=== PATIENT | female | born 1945 | race Caucasian/White ===

== ENCOUNTER 2016-05-29 08:59 | Emergency (ER) | payer MEDICARE ==
[~2016-05-29] VITALS: Wt 65.0 kg
--- NOTE | 2016-05-29 10:38 | ERD ---
ER Documentation Chief Complaint Date/Time DATE: 05/29/16 TIME: 10:37 Chief Complaint cough for the past 5 mos. upperback pain. neck pain and swelling no stridor HPI This is a 71-year-old female presents to the ER with a cough for the last 5 months. Patient states she has been trying to take Robitussin however has not worked. Cough is dry and worse at night. Patient also complaining of upper back pain secondary to coughing. She denies any chest pain or shortness of breath. Did not has not traveled anywhere. She denies any fevers or chills. There are no sick contacts at home. ROS 12 point review of systems was done, all negative except per HPI. Medications Home Meds Active Scripts Methylprednisolone* (Medrol* DOSE PACK) 4 Mg/Dose-Pack Tab.ds.pk, 4 MG PO . DIRECTED for 6 Days, PACKET Prov:SAHARA BLACKMON 05/29/16 Allergies Allergies: Uncoded Allergies: PENICILLIN (Allergy, Intermediate, 05/29/16) PMhx/Soc Hx Cardiac Disorders: Yes (HTN) Hx Alcohol Use: No Hx Substance Use: No Hx Tobacco Use: No Physical Exam Vitals Vital Signs Date Time Temp Pulse Resp B/P Pulse Ox O2 Delivery O2 Flow Rate FiO2 05/29/16 09:03 97.9 59 20 142/78 99 Physical Exam GENERAL: The patient is well-developed, well-nourished, in no acute distress. NECK: 2cm*3cm hard mass on right side of neck, next to thyroid HEENT: Atraumatic. Pupils equal, round and reactive to light. Extraocular muscles are grossly intact. Conjunctivae pink, no discharge. Bilateral tympanic membranes are clear with no evidence of erythema, effusion or dulling of the light reflex. Tonsilar erythema with no exudates or uvular deviation. Clear rhinorrhea. RESPIRATORY: Clear to auscultation bilaterally. There are no rales, wheezes or rhonchi. HEART: Regular rate and rhythm. No murmurs, clicks, rubs or gallops. NEUROLOGIC: Alert and oriented. SKIN: There is no rash. The skin is warm and dry. Procedures/MDM Differential diagnosis includes but is not limited to; Viral URI, allergic rhinitis, bronchitis, pertussis,pneumonia. Patient has had a cough for the last 5 months. Patient likely has bronchitis which is viral in etiology. She is afebrile and well-appearing. Will be sent home with a steroid pack. Clinical suspicion for pneumonia is low as patient appears well, is not hypoxic or in any respiratory distress. Additionally, patients physical examination is benign. Patient does have a cyst in her neck which could be related to the thyroid however radiologist is not sure. Patient urgently needs to follow-up with her primary care doctor regarding this mass. Thoroughly explained to the patient she understood the plan. Plan was discussed with patient they understand and agree. Patient needs to follow up with PCP in 1-2 days or return to ER sooner if symptoms worsen. Departure Diagnosis: Primary Impression: Bronchitis Condition: Stable SAHARA BLACKMON May 29, 2016 10:38
--- NOTE | 2016-05-29 10:56 | RADRPT ---
PROCEDURE: Ultrasound neck CLINICAL INDICATION: Right neck mass TECHNIQUE: Sonographic evaluation of the right lateral neck was performed. Pyle scale and color i maging was performed in the sagittal and coronal planes. Images were reviewed on a high-resolution PACS workstation. COMPARISON: None available FINDINGS: The bilateral thyroid gland is enlarged and heterogeneous with multiple nodules most consistent with multinodular goiter. There is a 2.4 x 2.8 cm mass in the right neck mass which may be separate fro m the thyroid gland, though is contiguous with the thyroid gland. It is unclear from the provided i mages of this represents a thyroid nodule, and adjacent mass/enlarged lymph node. Per ultrasonograph er, this lesion is distinct and separate from the thyroid gland. This lesion appears to represent a complex cystic lesion given through transmission. The lesion is hypervascular confirming some jermaine d component. IMPRESSION: 1. 2.8 cm solid hypervascular mass with cystic components in the right neck. This mass is difficul t to separate from the thyroid gland, however is not definitively within the gland. Recommend furth er evaluation with contrast enhanced CT of the neck. RPTAT: KK .Sg Honeycutt MD, Date Time Electronically viewed and signed by .Sg Honeycutt MD, MD on 05/29/2016 10:55 .B/
--- NOTE | 2016-05-29 11:08 | RADRPT ---
PROCEDURE: Chest Radiograph. CLINICAL INDICATION: Cough TECHNIQUE: Single frontal chest radiograph. COMPARISON: None available FINDINGS: Heart size is poorly evaluated. Atherosclerotic calcifications are present. Lung volumes are decre ased in there is basilar atelectasis and central compressive change. No infiltrate or effusion is se en. The bones are intact. IMPRESSION: 1. Low lung volumes with basilar atelectasis and central compressive changes. 2. Atherosclerotic vascular disease. 3. No evidence of acute cardiopulmonary disease. RPTAT: KK .Sg Honeycutt MD, MD Date Time Electronically viewed and signed by .Sg Honeycutt MD, MD on 05/29/2016 11:08 .B/
[2016-05-29] MEDS ORDERED: MED4DP PO (11:31)
== END 2016-05-29 11:44 | disposition home or self-care (01) ==
LOC: FTE 08:59
DX: J40 Bronchitis, not specified as acute or chronic (principal); I10 Essential (primary) hypertension
CPT/HCPCS: 71010; 76536; 93005

== ENCOUNTER 2016-08-08 16:43 | Emergency (ER) | payer OTHER ==
[~2016-08-08] VITALS: Ht 157.5 cm; Wt 85.0 kg
[~2016-08-08 16:43] MED LIST: MED4DP PO
[2016-08-08 16:45] VITALS: Ht 157.5 cm; Wt 85.0 kg
--- NOTE | 2016-08-08 17:33 | RADRPT ---
PROCEDURE: CHEST 1VW CLINICAL INDICATION: Cough TECHNIQUE: Single frontal view of the chest was obtained COMPARISON: None. FINDINGS: The cardiac size is normal. Aortic vascular calcifications are demonstrated. There is no pulmonary vascular congestion. Minimal bronchial wall thickening is seen. The lungs are otherwise clear. No consolidation, effusion, or pneumothorax. Mild degenerative changes of the visualized osseous structures are visualized. IMPRESSION: 1. Minimal bronchial wall thickening may be sequela of bronchitis, asthma, or other nonspecific air way inflammation. 2. Atherosclerosis. RPTAT:PP .Melchor Lake MD, MD Date Time Electronically viewed and signed by .Melchor Lake MD, MD on 08/08/2016 17:33 .V/
[2016-08-08] MEDS ORDERED: AZIT250T94 PO (17:39)
[2016-08-08] MEDS ORDERED: PRED20TA PO (17:40)
--- NOTE | 2016-08-08 18:16 | ERD ---
ER Documentation Chief Complaint Date/Time DATE: 08/08/16 TIME: 18:15 Chief Complaint DRY COUGH X 2 WEEKS HPI This is a 71-year-old female presents to the ER with the dry cough over the last 2 weeks. Patient states that cough is worsening. She denies any chest pain or shortness of breath. She denies any fevers or chills. She does admit to a stuffy nose. She denies any sore throat. There are no sick contacts at home. Patient has not tried anything for her cough. ROS 12 point review of systems was done, all negative except per HPI. Medications Home Meds Active Scripts Prednisone* (Prednisone*) 20 Mg Tab, 40 MG PO DAILY for 4 Days, TAB Prov:SAHARA BLACKMON 08/08/16 Azithromycin* (Zithromax*) 250 Mg Tablet, 250 MG PO .ZPACK DIRECTED, #6 TAB TAKE 500 MG (2 TABS) THE FIRST DAY THEN 250 MG (1 TAB) DAYS 2-5 Prov:SAHAAR BLACKMON 08/08/16 PMhx/Soc Medical and Surgical Hx: pt denies Medical Hx, pt denies Surgical Hx Physical Exam Vitals Vital Signs Date Time Temp Pulse Resp B/P Pulse Ox O2 Delivery O2 Flow Rate FiO2 08/08/16 16:45 98.6 78 20 145/78 99 Physical Exam GENERAL: The patient is well-developed, well-nourished, in no acute distress. NECK: Cervical spine is non tender with no step off. Supple, no nuchal rigidity HEENT: Atraumatic. Pupils equal, round and reactive to light. Extraocular muscles are grossly intact. Conjunctivae pink, no discharge. Bilateral tympanic membranes are clear with no evidence of erythema, effusion or dulling of the light reflex. Tonsilar erythema with no exudates or uvular deviation. Clear rhinorrhea. RESPIRATORY: Clear to auscultation bilaterally. There are no rales, wheezes or rhonchi. HEART: Regular rate and rhythm. No murmurs, clicks, rubs or gallops. EXTREMITIES: No clubbing or cyanosis. Full range of motion. Grossly neurovascularly intact. NEUROLOGIC: Alert and oriented. Cranial nerves II through XII are intact. SKIN: There is no rash. The skin is warm and dry. Procedures/MDM Differential diagnosis includes but is not limited to; Viral URI, allergic rhinitis, bronchitis, pertussis,pneumonia. This is likely bronchitis. Clinical suspicion for pneumonia is low as patient appears well, is not hypoxic or in any respiratory distress. Additionally, patients physical examination is benign. Plan was discussed with patient they understand and agree. Patient needs to follow up with PCP in 1-2 days or return to ER sooner if symptoms worsen. Departure Diagnosis: Primary Impression: Bronchitis Condition: Stable Patient Instructions: What Is Bronchitis? Additional Instructions: Llame al doctor MAANA y vandana denise CLARE PARA DENTRO DE 1-2 KEARNS.Dgale a la secretaria que nosotros le instruimos hacer esta clare.Avise o llame si herring condicin se empeora antes de la clare. Regresa aqui si peor o no mejor. SAHARA BLACKMON Aug 08, 2016 18:16
== END 2016-08-08 18:07 | disposition home or self-care (01) ==
LOC: FTE 16:43 → MERGE 16:43 → FTE 18:07
DX: J20.9 Acute bronchitis, unspecified (principal)
CPT/HCPCS: 71010; 99284

== ENCOUNTER 2018-01-11 01:57 | Emergency (ER) | END 2018-01-11 04:45 | disposition home or self-care (01) ==

== ENCOUNTER 2018-08-17 10:58 | Emergency (ER) | payer OTHER ==
[~2018-08-17] VITALS: Ht 154.9 cm; Wt 66.6 kg
[~2018-08-17 10:58] MED LIST changes: +AZIT250T PO; +MECL12.574 PO; +ONDA4TAB14 PO; +PRED20TA PO
[2018-08-17 11:03] VITALS: BP 171/79; PULSE 79; RESP 18; Ht 154.9 cm; Wt 66.6 kg
[2018-08-17] MEDS ORDERED: PSEU-79 PO (11:28)
[2018-08-17] MEDS ORDERED: AZIT250T PO (11:28)
[2018-08-17] MEDS ORDERED: BENZ-6 PO (11:28)
[2018-08-17] MEDS ORDERED: D-ME473S2 PO (11:28)
--- NOTE | 2018-08-17 12:32 | ERD ---
ER Documentation Chief Complaint Chief Complaint COUGH, FEVER & EAR ACHE X1 WK HPI 73-year-old female presenting with cough tactile fevers and ear pain x1 week. Patient states he has some congestion and a runny nose. She states the symptoms have been going for the last 7 days however she is had chronic sore throat for the last year. Denies medical problems. Allergy to penicillin. Surgical history denies. Social history denies ROS All systems reviewed and are negative except as per history of present illness. Medications Home Meds Active Scripts Pseudoephedrine Hcl* (Suphedrin*) 30 Mg Tablet, 30 MG PO Q6 PRN for CONGESTION, #30 TAB Prov:ETIENNE WOOD PA-C 08/17/18 Azithromycin* (Zithromax*) 250 Mg Tablet, 250 MG PO .ZPACK DIRECTED, #6 TAB TAKE 500 MG (2 TABS) THE FIRST DAY THEN 250 MG (1 TAB) DAYS 2-5 Prov:ETIENNE WOOD PA-C 08/17/18 Benzonatate* (Tessalon Perle*) 100 Mg Capsule, 100 MG PO Q8H PRN for COUGH, #30 CAP Prov:ETIENNE WOOD PA-C 08/17/18 Dextromethorphan Hb-Promethazine Hcl* (Promethazine DM* Syrup) 473 Ml Syrup, 5 ML PO Q6 PRN for COUGH, #100 ML Prov:ETIENNE WOOD PA-C 08/17/18 Meclizine Hcl* (Antivert*) 12.5 Mg Tab, 12.5 MG PO Q6H PRN for DIZZINESS, #20 TAB Prov:DURAN PLASENCIA MD 01/11/18 Ondansetron (Ondansetron Odt) 4 Mg Tab.rapdis, 4 MG PO Q6H PRN for NAUSEA AND/OR VOMITING, #20 TAB Prov:DURAN PLASENCIA MD 01/11/18 Prednisone* (Prednisone*) 20 Mg Tab, 40 MG PO DAILY for 4 Days, TAB Prov:SAHARA BLACKMON 08/08/16 Azithromycin* (Zithromax*) 250 Mg Tablet, 250 MG PO .ZPACK DIRECTED, #6 TAB TAKE 500 MG (2 TABS) THE FIRST DAY THEN 250 MG (1 TAB) DAYS 2-5 Prov:SAHARA BLACKMON 08/08/16 Methylprednisolone* (Medrol* DOSE PACK) 4 Mg/Dose-Pack Tab.ds.pk, 4 MG PO . DIRECTED for 6 Days, PACKET Prov:SAHARA BLACKMON 05/29/16 Allergies Allergies: Coded Allergies: Penicillins (Verified Allergy, Unknown, 01/11/18) PMhx/Soc Medical and Surgical Hx: pt denies Surgical Hx History of Surgery: No Anesthesia Reaction: No Hx Neurological Disorder: No Hx Respiratory Disorders: No Hx Cardiac Disorders: Yes (HTN) Hx Psychiatric Problems: No Hx Miscellaneous Medical Probl: No Hx Alcohol Use: No Hx Substance Use: No Hx Tobacco Use: No Smoking Status: Never smoker FmHx Family History: No diabetes, No coronary disease, No other Physical Exam Vitals Vital Signs Date Temp Pulse Resp B/P (MAP) Pulse Ox O2 O2 Flow FiO2 Time Delivery Rate 08/17/18 99.9 79 18 171/79 98 11:03 (109) Physical Exam GENERAL: The patient is well-appearing, well-nourished, in no acute distress HEENT: Atraumatic. Conjunctivae are pink. Pupils equal, round, and reactive to light. There is no scleral icterus. Tympanic membranes clear bilaterally. Oropharynx clear. NECK: C-spine is soft and supple. There is no meningismus. There is no cervical lymphadenopathy. CHEST: Clear to auscultation bilaterally. There are no rales, wheezes or rhonchi. HEART: Regular rate and rhythm. No murmurs, clicks, rubs or gallops. EXTREMITIES: Equal pulses bilaterally. There is no peripheral clubbing, cyanosis or edema. No focal swelling or erythema. Procedures/MDM DM: 73-year-old female presenting with cough. Patient has URI type symptoms. Given patient's age I will treat with antibiotics however I have low suspicion for meningitis or sepsis. Patient likely has sinusitis. Patient is discharged with supportive medications and told to follow-up with primary care. I do not feel blood work or imaging is indicated. All questions answered at discharge Departure Diagnosis: Primary Impression: Cough Condition: Stable Patient Instructions: Cough, Chronic, Uncertain Cause, (Adult) Referrals: COMM[facility]IN[facility] YOU HAVE RECEIVED A MEDICAL SCREENING EXAM AND THE RESULTS INDICATE THAT YOU DO NOT HAVE A CONDITION THAT REQUIRES URGENT TREATMENT IN THE EMERGENCY DEPARTMENT. FURTHER EVALUATION AND TREATMENT OF YOUR CONDITION CAN WAIT UNTIL YOU ARE SEEN IN YOUR DOCTORS OFFICE WITHIN THE NEXT 1-2 DAYS. IT IS YOUR RESPONSIBILITY TO MAKE AN APPOINTMENT FOR FOLOW-UP CARE. IF YOU HAVE A PRIMARY DOCTOR --you should call your primary doctor and schedule an appointment IF YOU DO NOT HAVE A PRIMARY DOCTOR YOU CAN CALL OUR PHYSICIAN REFERRAL HOTLINE AT IF YOU CAN NOT AFFORD TO SEE A PHYSICIAN YOU CAN CHOSE FROM THE FOLLOWING [facility] [address] [facility] [address] [facility] [facility] [address] [facility] [address] [facility] [address] [facility]. [address] Additional Instructions: FOLLOW UP WITH YOUR PRIMARY CARE PHYSICIAN TOMORROW.Return to this facility if you are not improving as expected. ETIENNE WOOD PA-C Aug 17, 2018 12:32
== END 2018-08-17 11:46 | disposition home or self-care (01) ==
LOC: FTE 10:58
DX: R05 Cough (principal); I10 Essential (primary) hypertension
CPT/HCPCS: 99283